=== PATIENT | female | born 1950 | race Hispanic/Latino ===

== ENCOUNTER 2018-03-19 14:42 | Emergency (ER) | payer BC, MEDICARE ==
[2018-03-19 14:52] VITALS: BMI 24.5
[2018-03-19] MEDS ORDERED: Naproxen 500 MG TAB PO STA (15:22)
--- NOTE | 2018-03-19 15:24 | ED PDOC ---
Lower Extremity Pain/Injury Time Seen by Provider: 03/19/18 15:12 Chief Complaint (Nursing): Lower Extremity Problem/Injury Chief Complaint (Provider): Lower Extremity Problem/Injury History Per: Patient History/Exam Limitations: no limitations Onset/Duration Of Symptoms: Days (1x) Current Symptoms Are (Timing): Still Present Severity: Moderate Additional Complaint(s): 67 year old female with a past history of left ankle fracture presents to the ED for an evaluation of a left ankle injury she sustained yesterday. Patient reports she was running across the street when she felt a pulling sensation to the back of her left ankle. She reports pain with ambulation since. She states the pain is nonradiating and worsens with movement. Patient denies taking pain medications for symptoms. Patient has no other complaints. Otherwise: (-) knee pain, (-) other injury (-) loss of sensation. PMD: Out of state, patient is visiting from [place] - Ankle/Foot Description Of Injury: Other (left ankle: felt pulling sensation when running) Past Medical History Reviewed: Historical Data, Nursing Documentation, Vital Signs Vital Signs: Last Vital Signs Temp 97.8 F 03/19/18 14:51 Pulse 68 03/19/18 14:51 Resp 16 03/19/18 14:51 BP 130/79 03/19/18 14:51 Pulse Ox 98 03/19/18 14:51 - Medical History PMH: Anxiety - Surgical History Other surgeries: hysterectomy, bilateral breast procedure. - Family History Family History: States: No Known Family Hx - Social History Alcohol: Other (yes) Drugs: Denies - Home Medications Home Medications: Ambulatory Orders Medication Instructions Recorded Acetaminophen [Acetaminophen 8 650 mg PO Q8 PRN #21 tablet.er 03/19/18 Hour] RX: Naproxen 500 mg PO BID PRN #20 tab 03/19/18 - Allergies Allergies/Adverse Reactions: Allergies Allergy/AdvReac Type Severity Reaction Status Date / Time No Known Allergies Allergy Verified 03/19/18 15:22 Review of Systems ROS Statement: Except As Marked, All Systems Reviewed And Found Negative Musculoskeletal: Positive for: Other (left ankle pain) Physical Exam - Reviewed Nursing Documentation Reviewed: Yes Vital Signs Reviewed: Yes - Physical Exam Comments: GENERAL APPEARANCE: Patient is awake, alert, oriented x 3, resting comfortably, in no acute distress. SKIN: Warm, dry; (-) cyanosis. NECK: Supple, FROM LOWER EXTREMITY: Left Ankle: (+) tenderness to posterior and lateral aspect of left ankle, (+) palpable stepoff at achilles tendon, (+) pain with plantar flexion, otherwise ROM intact of left ankle. (-) swelling, (-) fortune test (-) ecchymosis. Knee and foot: (-) injury. (+) remainder of lower extremity non tender with full ROM. (-) calf tenderness CARDIOVASCULAR: (+) distal pulse. NEUROLOGIC: (+) distal sensation. (+) strength 5/5 to lower extremity bilaterally. Gait: limping. Speech: clear. (-) facial asymmetry (-) aphasia (-) focal deficit - ECG O2 Sat by Pulse Oximetry: 98 (RA) Pulse Ox Interpretation: Normal Medical Decision Making Medical Decision Makin Clinical impression: 67 year old female with acute ankle pain, probable Achilles injury Initial plan: * naproxen 500 mg PO * XRay ankle left 3 views * reevaluation 1525 Consult placed to podiatry. 1530 Case discussed with podiatry resident, Sky Marsh. Recommends U/S evaluation. U/S ordered. Podiatry to evaluate patient in ED. 1557 XRay ankle left and reviewed by radiologist FINDINGS: BONES: No definitive evidence of acute displaced fracture nor dislocation. The osseous structures appear intact. Small corticated bony densities are seen adjacent to the S/overlying the inferior aspect of the medial malleolus likely representing some old posttraumatic mineralization. Tiny corticated bony density also seen at the posterior and anterior margins of the tibiotalar articulations. There is a small to medium-sized posterior calcaneal enthesophyte. JOINTS: Normal. No osteoarthritis. Ankle mortise maintained. Talar dome intact SOFT TISSUES: The Achilles tendon so far as can be determined appears intact with no evidence of complete full-thickness tear or subcutaneous emphysema within limitation of this plain film exam. However consider follow-up MRI if incomplete tear or strain is suspected clinically. OTHER FINDINGS: None. IMPRESSION: No evidence of acute displaced fracture nor dislocation. There appears to be some corticated densities surrounding the ankle joint possibly representing old posttraumatic mineralization as detailed above. Pending U/S evaluation. 1615 Podiatry at bedside. See consult note. 1630 Patient in U/S. 1715 Splint placed by podiatry. Patient provided with crutches and instructed on cru tch walking. 1755 U/S reviewed, radiology report follows Date of service: 03/19/2018 PROCEDURE: Left Achilles tendon ultrasound HISTORY: Rule out achilles injury COMPARISON: No prior study available for comparison however correlation made with radiographs of the left ankle obtained earlier same day TECHNIQUE: Sonographic evaluation limited to the Achilles tendon performed FINDINGS: The current study reveals a small focal area of diminished echotexture along the distal inferomedial aspect of the Achilles tendon near the insertion site. This could represent a partial-thickness tear. Follow-up MRI is recommended for further evaluation of the Achilles tendon. No evidence of fluid collections are identified IMPRESSION: Possible partial-thickness tear of the distal inferomedial aspect of the Achilles tendon near the insertion site along the calcaneus. Recommend follow- up MRI. On re-evaluation, patient reports improvement of symptoms. On exam, patient remains AAOx3, in no acute distress. Lungs clear to auscultation, cardiac RRR, repeat neuro exam shows no focal findings. Vitals stable. RICE encouraged. Educated on splint care. Lab/Diagnostic results d/w the patient in great detail. Diagnosis of partial achilles tendon tear, acute ankle pain d/w the patient. Based on history, exam and diagnostic results, plan will be for outpatient follow up with podiatry/ortho. Patient instructed to follow-up with pmd / referral provided / the clinic in 1- 2 days without fail. Advised to take medication as prescribed. Return to the emergency room at any time for any new or worsening symptoms. Patient states she fully agrees with and understands discharge instructions. States that she agrees with the plan and disposition. Verbalized and repeated discharge instructions and plan. I have given the patient opportunity to ask any additional questions. Scribe Attestation: Documented by Veronika Rao, acting as a scribe for Veronika Cain Provider Scribe Attestation: All medical record entries made by the Scribe were at my direction and personally dictated by me. I have reviewed the chart and agree that the record accurately reflects my personal performance of the history, physical exam, medical decision making, and the department course for this patient. I have also personally directed, reviewed, and agree with the discharge instructions and disposition. Disposition - Clinical Impression Clinical Impression: Achilles tendon injury, Ankle pain, Partial tear of Achilles tendon - Patient ED Disposition Is Patient to be Admitted: No Counseled Patient/Family Regarding: Studies Performed, Diagnosis, Need For Followup, Rx Given - Disposition Referrals: Podiatry Clinic [Outside] Giorgi Alfredo DPM [Staff Provider] - Disposition: Routine/Home Disposition Time: 17:58 Condition: STABLE Additional Instructions: The emergency medical care you received today was directed at your acute symptoms. If you were prescribed any medication, please fill it and take as directed. It may take several days for your symptoms to resolve. Return to the Emergency Department if your symptoms worsen, do not improve, or if you have any other problems. Please contact your doctor in 2 days for re-evaluation and follow up / or call one of the physicians/clinics you have been referred to that are listed on the Patient Visit Information form that is included in your discharge packet. Bring any paperwork you were given at discharge with you along with any medications you are taking to your follow up visit. Our treatment cannot replace ongoing medical care by a primary care provider (PCP) outside of the emergency department. Prescriptions: Acetaminophen [Acetaminophen 8 Hour] 650 mg PO Q8 PRN #21 tablet.er PRN Reason: Pain, Moderate (4-7) RX: Naproxen 500 mg PO BID PRN #20 tab PRN Reason: Pain, Moderate (4-7) Instructions: Ankle Sprain, Achilles Tendon Rupture, Lower Extremity Muscle Strain (DC) Forms: [employer] (Dominican) Print Language: LAO - POA Present On Arrival: None
[2018-03-19] MEDS ORDERED: Naproxen 500 MG TAB PO ONE (15:55)
--- NOTE | 2018-03-19 16:01 | RAD ---
Date of service: 03/19/2018 PROCEDURE: Left Ankle Radiographs. HISTORY: possible achilles injury COMPARISON: None FINDINGS: BONES: No definitive evidence of acute displaced fracture nor dislocation. The osseous structures appear intact. Small corticated bony densities are seen adjacent to the S/overlying the inferior aspect of the medial malleolus likely representing some old posttraumatic mineralization. Tiny corticated bony density also seen at the posterior and anterior margins of the tibiotalar articulations. There is a small to medium-sized posterior calcaneal enthesophyte. JOINTS: Normal. No osteoarthritis. Ankle mortise maintained. Talar dome intact SOFT TISSUES: The Achilles tendon so far as can be determined appears intact with no evidence of complete full-thickness tear or subcutaneous emphysema within limitation of this plain film exam. However consider follow-up MRI if incomplete tear or strain is suspected clinically. OTHER FINDINGS: None. IMPRESSION: No evidence of acute displaced fracture nor dislocation. There appears to be some corticated densities surrounding the ankle joint possibly representing old posttraumatic mineralization as detailed above.
--- NOTE | 2018-03-19 16:30 | CP.PCM.PN ---
Subjective - Date & Time of Evaluation Date of Evaluation: 03/19/18 Time of Evaluation: 16:30 - Subjective Subjective: Podiatry Consult Note for Dr. Alfredo: 67 yo female patient, with no significant PMHx, seen and evaluated in the ED for L ankle pain. Patient states that she was running across the street yesterday and twisted her ankle. She admits to pain with ambulation today and presented to the ED. She has not taken any pain medication for the pain. Patient to full weightbear. 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 Patient denies N/V/F/SOB. Objective - Vital Signs/Intake and Output Vital Signs (last 24 hours): Temp Pulse Resp BP Pulse Ox 97.8 F 68 16 130/79 98 03/19/18 15:10 03/19/18 15:10 03/19/18 15:10 03/19/18 15:10 03/19/18 16:17 - Constitutional Appears: Well, Non-toxic, No Acute Distress - Head Exam Head Exam: ATRAUMATIC, NORMOCEPHALIC - Extremities Exam Additional comments: LLE focused exam: Vascular: DP/PT 2/4, CFT < 3 seconds to all digits, TG warm to warm, mild edema noted to L achilles tendon Ortho: Pain upon palpation to insertion of achilles tendon. MMT 4/5 secondary to patient guarding. Pain with plantarflexion. Negative fortune test Neuro: Gross and protective sensation intact Derm: No open lesions, no erythema, no clinical signs of infection to LLE - Neurological Exam Neurological Exam: Alert, Awake, Oriented x3 - Psychiatric Exam Psychiatric exam: Normal Affect, Normal Mood Assessment and Plan - Assessment and Plan (Free Text) Assessment: 67 yo female patient with L ankle pain r/o partial achilles tear vs achilles tendonitis . Plan: Patient seen and evaluated in ED Discussed patient plan in detail with Dr. Alfredo L ankle x-rays taken; No evidence of full thickness achilles tear L US taken; results pending Patient placed in posterior splint, crutches dispensed Patient advised to remain NWB to LLE until further evaluation OTC pain medication as needed Outpatient MRI recommended to further evaluated if there is an incomplete tear/strain to the achilles tendon Patient to follow with Dr. Alfredo in clinic within the next week Thank you for the consult
--- NOTE | 2018-03-19 17:55 | US ---
Date of service: 03/19/2018 PROCEDURE: Left Achilles tendon ultrasound HISTORY: Rule out achilles injury COMPARISON: No prior study available for comparison however correlation made with radiographs of the left ankle obtained earlier same day TECHNIQUE: Sonographic evaluation limited to the Achilles tendon performed FINDINGS: The current study reveals a small focal area of diminished echotexture along the distal inferomedial aspect of the Achilles tendon near the insertion site. This could represent a partial-thickness tear. Follow-up MRI is recommended for further evaluation of the Achilles tendon. No evidence of fluid collections are identified IMPRESSION: Possible partial-thickness tear of the distal inferomedial aspect of the Achilles tendon near the insertion site along the calcaneus. Recommend follow-up MRI.
[2018-03-19 18:03] VITALS: BP 125/82; PULSE 69; RESP 18; TEMP 98.7
[2018-03-20 23:58] VITALS: O2SAT 98
== END 2018-03-19 18:07 | disposition home or self-care (01) ==
LOC: H.ER 14:42
DX: S86.002A Unspecified injury of left Achilles tendon, initial encounter (principal); S86.012A Strain of left Achilles tendon, initial encounter; Y93.02 Activity, running; Z90.710 Acquired absence of both cervix and uterus